=== PATIENT | male | born 1970 | race African-American/Black ===

== ENCOUNTER 2019-05-15 10:22 | Emergency (ER) | payer SELFPAY ==
[2019-05-15 10:30] VITALS: BP 150/107; PULSE 97; RESP 16; TEMP 36.8; O2SAT 98
--- NOTE | 2019-05-15 10:30 | ED.URI ---
HPI - URI/Sore Throat General Chief Complaint: Upper Respiratory Infection Stated Complaint: wheezing/cough Time Seen by Provider: 05/15/19 10:35 Source: patient Mode of arrival: ambulatory Limitations: no limitations History of Present Illness HPI Narrative: Anton Bullock is a 49 yo male with a PMH of asthma and HTN, who came to the [facility] care for complaints of residual cough and mild wheezing after having a bad cold last week. He has no medications for his asthma or his hypertension; discussed importance of taking medication on a regular basis and follow-up Related Data Allergies Allergy/AdvReac Type Severity Reaction Status Date / Time Penicillins Allergy Unknown Verified 12/05/10 08:13 Review of Systems Review of Systems: Narrative: CONSTITUTIONAL: Denies fever, chills, sweats. EYES: Denies visual changes, redness, discharge. ENT: Denies rhinorrhea, has congestion, no sore throat, otalgia. CARDIOVASCULAR: Denies chest pain, palpitations, edema. RESPIRATORY: Denies dyspnea, has wheezing, dry cough GASTROINTESTINAL: Denies abdominal pain, nausea, vomiting, diarrhea. GENITOURINARY: Denies dysuria, hematuria, abnormal discharge SKIN: Denies rash or itching. MUSCULOSKELETAL: Denies acute back pain, joint pain, or myalgia. NEUROLOGIC: Denies numbness, or focal weakness. PSYCHIATRIC: Denies anxiety or depression. [facility] Family History Family History (Updated 05/15/19 @ 10:44 by Deidra Pagan CNP) Other No active medical problems Social History Social History Smoking status: Former smoker Smoking end date: 04/01/04 Alcohol intake: never Comments At time of signature, I agree with nursing past medical, surgical, social and family history. There is no relevant family history pertinent to the presenting complaint. Exam Narrative: Exam Narrative: GENERAL: This is a well-nourished, well-developed patient, mild distress. HEAD: normocephalic, atraumatic. EYES: Sclera clear/white. Vision is grossly intact. EARS: External ears normal, auditory canals clear and without drainage, TMs normal without perforation. Hearing grossly intact. NOSE: External nose normal with no obvious nasal discharge, nares without redness, no rhinorrhea. THROAT: Mucous membranes moist, posterior pharynx erythema NECK: Neck supple, non-tender without lymphadenopathy, CARDIOVASCULAR: Regular rate and rhythm without murmurs, gallops, or rubs. RESPIRATORY: Diminished to auscultation. Breath sounds equal bilaterally. Subtle bilateral wheezes, no rales, or rhonchi. GASTROINTESTINAL: Abdomen soft, non-tender, SKIN: warm, intact with no suspicious lesions or rash, good texture and turgor. NEURO: awake, alert, and oriented to person, place and time. There were no obvious focal neurologic abnormalities. Steady gait EXTREMITIES: Normal range of motion. No edema.No calf tenderness. Negative Homans sign bilaterally. BACK: Nontender without deformity or crepitance. No flank tenderness. Course Course Emergency Course: Discuss control blood pressure and asthma-reviewed Norvasc 5 mg and albuterol inhaler. Also gave 5 days of prednisone p.o., started on Claritin Vital Signs Vital signs: Vital Signs Temperature 98.3 F 05/15/19 10:30 Pulse Rate 97 05/15/19 10:30 Respiratory Rate 16 05/15/19 10:30 Blood Pressure 150/107 H 05/15/19 10:30 Pulse Oximetry 98 05/15/19 10:30 Temperature 98.3 F 05/15/19 10:30 Pulse Rate 97 05/15/19 10:30 Respiratory Rate 16 05/15/19 10:30 Blood Pressure 150/107 H 05/15/19 10:30 Pulse Oximetry 98 05/15/19 10:30 MDM - URI/Sore Throat Differential Diagnosis Differential diagnosis: Likely upper respiratory infection, sinusitis, viral infection and other Discharge Plan Discharge Clinical Impression: Bilateral wheezing Asthma Qualifiers: Asthma severity: mild Asthma persistence: persistent Asthma complication type: uncompli
--- NOTE | 2019-05-15 10:50 | PC.NURSE ---
Pt admitted to [facility] he was treated with Norvasc for BP and has run out of that as wellas asthma meds--needs refill
== END 2019-05-15 10:54 | disposition home or self-care (01) ==
PROVIDERS: Emergency Provider Nurse Practitioner; PCP Family Medicine
DX: J45.30 Mild persistent asthma, uncomplicated (principal); Z87.891 Personal history of nicotine dependence
CPT/HCPCS: 99213; G0463

== ENCOUNTER 2023-04-30 19:12 | Emergency (ER) | payer SELFPAY ==
[2023-04-30 19:18] VITALS: BP 199/116; PULSE 96; RESP 20; TEMP 36.6; O2SAT 100
--- NOTE | 2023-04-30 23:35 | ED.WOUNDLAC ---
HPI - Wound/Laceration General Chief Complaint: Wound/Laceration Stated Complaint: laceration Time Seen by Provider: 04/30/23 23:08 Source: patient Mode of arrival: ambulatory Limitations: no limitations History of Present Illness HPI narrative: This is a 53 year old male that presents to the ER for a laceration to his left 2nd finger sustained just prior to arrival. Reports he accidentally cut it on a pipe. Reports bleeding and pain to the area. He is up to date on tetanus. Denies decreased ROM or numbness. Related Data Allergies Allergy/AdvReac Type Severity Reaction Status Date / Time Penicillins Allergy Unknown Unknown Verified 04/30/23 22:05 shellfish derived Allergy Anaphylaxis Verified 04/30/23 22:05 Review of Systems Review of Systems: CONSTITUTIONAL: Denies fever SKIN: Reports laceration NEUROLOGIC: Denies numbness All systems reviewed & are unremarkable except as noted in HPI and below PMFSH Past Medical History Medical History (Updated 05/01/23 @ 00:21 by Perlita Rockwell PA-C) Essential hypertension Family History Family History (Updated 05/15/19 @ 10:44 by Deidra Pagan, ENGINE BOSS) Other No active medical problems Social History Social History Smoking status: Former smoker Smoking end date: 04/01/04 Alcohol intake: never Exam Narrative: GENERAL: Well-appearing, well-nourished, and in no acute distress. HEAD: Normocephalic, atraumatic. EYES: EOMI. EXTREMITIES: Normal range of motion. No edema. Left 2nd finger distal phalanx with 1.5cm linear laceration into subcutaneous tissue SKIN: Warm, dry, no rash. NEURO: No focal deficits. Alert and oriented x3. PSYCH: Normal mood and affect Course Course Emergency Course: Patient educated on further wound care Vital Signs Vital signs: Vital Signs Temperature 97.9 F 04/30/23 19:18 Pulse Rate 96 04/30/23 19:18 Respiratory Rate 04/30/23 19:18 Blood Pressure 199/116 H 04/30/23 19:18 Pulse Oximetry 100 04/30/23 19:18 Temperature 97.9 F 04/30/23 19:18 Pulse Rate 96 04/30/23 19:18 Respiratory Rate 04/30/23 19:18 Blood Pressure 199/116 H 04/30/23 19:18 Pulse Oximetry 100 04/30/23 19:18 Procedures Laceration Laceration 1: Date: 05/01/23 Time: 00:17 Site: hand Side (If applicable): left Size (cm): 1.5 Description: linear Depth: simple, single layer Local Anesthetic: lidocaine 1% Amount of anesthesia used (mL): 4 Pre-repair: wound explored and irrigated ====== Skin Level ====== Skin layer closed with: nylon Size (cm): 4-0 Number of sutures: 3 Technique: simple, interrupted ====== Subcutaneous Layer ====== ====== Muscle Layer ====== ====== Tendon Layer ====== MDM - Wound/Laceration MDM Narrative Medical decision making narrative: Patient presents to the emergency department for a laceration of the left 2nd finger sustained just prior to arrival. This was irrigated and closed with sutures. Patient is up to date on tetanus vaccination. He was educated on further wound care. He is to follow up with primary provider. He was given warnings to return to the ER Patient's blood pressure elevated in the ED. He reports history of hypertension, but he has not been taking his Amlodipine. He is asymptomatic with this. Instructed on the importance of taking his medication having close follow-up with primary for this. He was given his Amlodipine in the ED and will be given prescription Differential Diagnosis Differential diagnosis: Likely laceration and avulsion of skin Critical Care Time Critical Care Time Critical Care Time: No Discharge Plan Discharge Clinical Impression: Laceration Hypertension Qualifiers: Hypertension type: unspecified Qualified Code(s): I10 - Essential (primary) hypertension Patient
[2023-04-30] MEDS: amLODIPine BESYLATE 5 MG TABLET PO (23:41)
[2023-05-01 00:32] VITALS: BP 169/118; PULSE 84
--- NOTE | 2023-05-01 01:55 | PC.NURSE ---
Dressing applied to left index finger by JOSELIN Bhat.
== END 2023-05-01 00:58 | disposition home or self-care (01) ==
PROVIDERS: Emergency Provider Physician Assistant; PCP Family Medicine
DX: S61.211A Laceration without foreign body of left index finger without damage to nail, initial encounter (principal); I10 Essential (primary) hypertension; W26.8XXA Contact with other sharp object(s), not elsewhere classified, initial encounter
CPT/HCPCS: 12001; 99283; A9270

== ENCOUNTER 2023-08-29 07:22 | Emergency (ER) | payer BC, SELFPAY ==
[2023-08-29] VITALS (18 sets, daily range): BP systolic 152–177; BP diastolic 94–130; PULSE 71–93; RESP 10–20; TEMP 36.9; O2SAT 97–100
--- NOTE | ~2023-08-29 | XR_ITS ---
EXAMINATION: XR chest 2V 08/29/2023 08:02 INDICATION: Shortness of breath. PROCEDURE: 2 view chest COMPARISON: Comparison to multiple prior studies sequentially, with oldest reviewed study dated 12/17. FINDINGS: The lungs are clear. The cardiomediastinal silhouette is within normal limits. There are no pleural effusions. There is no pneumothorax suspected. IMPRESSION: 1: NO ACUTE CARDIOPULMONARY DISEASE. Reviewed, dictated and finalized at location B.
--- NOTE | 2023-08-29 07:30 | ECG_ITS ---
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 Measurements Intervals [place] Rate: 85 P: 65 MA: 162 QRS: 52 QRSD: 86 T: 51 QT: 362 QTc: 431 Interpretive Statements SINUS RHYTHM BASELINE ARTIFACT- I, II, III, V1 NORMAL ECG No previous ECG available for comparison Electronically Signed On 08-29-2023 16:45:08 CDT by Schuyler Sosa D.O.
[2023-08-29 07:48] LABS: Basophils Percent Auto 0.3 % (0.2-1.2); Eosinophils Absolute Auto 0.6 K/mm3 (0-0.3); Eosinophils Percent Auto 4.8 % (0-4.4); Hematocrit 44.9 % (42.0-52.0); Hemoglobin 14.6 g/dL (14.0-18.0); Immature Granulocyte Absolute 0.03 K/mm3 (0.00-0.031); Immature Granulocyte Percent A 0.2 % (0-0.5); Lymphocytes Absolute Auto 2.16 K/mm3 (0.9-3.2); Lymphocytes Percent Auto 17.3 % (18.3-44.2); Mean Corpuscular HGB Conc 32.5 g/dl (32-36); Mean Platelet Volume 9.2 fl (7.4-10.4); Monocytes Absolute Auto 0.6 K/mm3 (0.1-0.6); Monocytes Percent Auto 5.1 % (2.6-8.5); Neutrophils Percent Auto 72.3 % (45.5-73.1); Platelet Count Result 261 k/mm3 (150-375); Red Blood Count 5.22 M/mm3 (4.6-6.20); White Blood Count 12.5 K/mm3 (4.5-10.0)
--- NOTE | 2023-08-29 07:58 | ED.SOB ---
HPI - SOB/Dyspnea General Chief Complaint: Shortness of Breath/Dyspnea Stated Complaint: SOB since yesterday Time Seen by Provider: 08/29/23 07:57 Source: patient Mode of arrival: ambulatory Limitations: no limitations History of Present Illness HPI Narrative: 53-year-old male with past medical history asthma presents with shortness of breath since yesterday approximately 5 pm. Patient has been working around [place] which contains the rain which is a known trigger of his asthma. At baseline his asthma has been well controlled while he was on Trelegy but he admits that he is been out of this medication. He trialed his albuterol inhaler which he typically uses only p.r.n. that he ran out of this medication last night after using it. No prior hospitalizations, intubations, or BiPAP use for his asthma. He denies any fevers or chest pain. He has a history of hypertension for which he takes medication but he ran out of this medication 2 days ago. He can hear wheezes and he notes that he has tightness. He was coughing last night and expectorated mucus this morning as well as rhinorrhea. He used to see Dr. Hopkins but this is no longer his primary care physician and he does not have 1. Related Data Allergies Allergy/AdvReac Type Severity Reaction Status Date / Time Penicillins Allergy Unknown Unknown Verified 08/29/23 07:32 shellfish derived Allergy Anaphylaxis Verified 08/29/23 07:32 [facility] Past Medical History Medical History Asthma Essential hypertension Family History Family History (Updated 05/15/19 @ 10:44 by Deidra Pagan, TRAVEL WRITER) Other No active medical problems Social History Social History Smoking status: Former smoker Smoking end date: 04/01/04 Alcohol intake: never Exam Narrative: GENERAL: Well-appearing, well-nourished, and in no acute distress. HEAD: Normocephalic, atraumatic. EYES: Non injected, non icteric ENT: Nares clear, no rhinorrhea or epistaxis. NECK: Supple. CHEST: Speaking in full sentences. No respiratory distress. Wheezes initially heard without auscultation though poor air movement on chest auscultation anteriorly and posteriorly during exam, although nonlabored. Initially cannot appreciate wheezes but with forced cough I do appreciate wheezes on auscultation. HEART: Regular rate and rhythm. . ABDOMEN: Soft, nondistended. EXTREMITIES: Normal range of motion. No bilateral lower extremity edema. SKIN: Warm, dry, no rash. NEURO: No focal deficits. Alert and oriented x3. PSYCH: Normal mood and affect. Course Vital Signs Vital signs: Vital Signs Temperature 98.5 F 08/29/23 07:25 Pulse Rate 93 08/29/23 07:25 Respiratory Rate 16 08/29/23 07:25 Blood Pressure 177/121 H 08/29/23 07:25 Pulse Oximetry 99 08/29/23 07:25 Oxygen Delivery Room Air 08/29/23 07:25 Temperature 98.5 F 08/29/23 07:25 Pulse Rate 73 08/29/23 09:15 Respiratory Rate 13 08/29/23 09:15 Blood Pressure 159/94 H 08/29/23 09:15 Pulse Oximetry 99 08/29/23 09:15 Oxygen Delivery Room Air 08/29/23 07:25 MDM - SOB/Dyspnea MDM Narrative Medical decision making narrative: The patient presented with cough and wheezing most likely due to asthma exacerbation. It is a moderate exacerbation as there is no altered mental status, abdominal breathing, or evidence of impending respiratory failure, though initially poor air movement. Additionally, the patient has never required intubation/bipap/hospitalization for an exacerbation. In the emergency department he is afebrile with vital signs notable for hypertension; notably, not tachycardic or hypoxic. States he is out of his antihypertensive. The patient received the following therapies Prednisone 40 mg p.o. Duoneb x1 albuterol 2.5 mg x1 Rx provided to refill his Trelegy and amlodipine (after confirming jess
[2023-08-29 08:00] LABS: Alanine Aminotransferase 31 U/L (6-50); Albumin Level 4.6 g/dL (3.5-5.1); Alkaline Phosphatase 76 U/L (38-126); Anion Gap 8 mmol/L (4-12); Aspartate Amino Transferase 44 U/L (17-59); Bilirubin,Total 0.9 mg/dL (0.2-1.3); Blood Urea Nitrogen 11 mg/dL (9-20); Calcium 8.7 mg/dL (8.4-10.2); Carbon Dioxide 28 mmol/L (22-30); Chloride 104 mmol/L (98-107); Estimated CRCL calculation 70 ml/min; Estimated Glomerular Filt Rate > 60; Glucose 109 mg/dL (65-110); Potassium 3.4 mmol/L (3.4-5.0); Sodium 140 mmol/L (137-145)
[2023-08-29] MEDS: predniSONE 20 MG TABLET 40 MG PO (08:09)
[2023-08-29] MEDS: ALBUTEROL SULFATE NEB 2.5 MG/3 ML INH INHALATION (08:15)
[2023-08-29] MEDS: IPRATROPIUM 0.5 MG/ALBUTEROL SULFATE 2.5 MG AMPUL.NEB 3 ML INHALATION (08:16)
[2023-08-29 09:06] LABS: Influenza A QL RT-PCR Negative (Negative); Influenza B QL RT-PCR Negative (Negative); RSV RNA, RT-PCR Negative (Negative); SARS-CoV-2 RNA PCR Negative (Negative)
== END 2023-08-29 09:31 | disposition home or self-care (01) ==
PROVIDERS: Emergency Provider Student in an Organized Health Care Education/Training Program; PCP Family Medicine
DX: J45.901 Unspecified asthma with (acute) exacerbation (principal); D72.829 Elevated white blood cell count, unspecified; I10 Essential (primary) hypertension; Z20.822 Contact with and (suspected) exposure to COVID-19; T48.6X6A Underdosing of antiasthmatics, initial encounter; T46.1X6A Underdosing of calcium-channel blockers, initial encounter; Z91.138 Patient's unintentional underdosing of medication regimen for other reason; Z87.891 Personal history of nicotine dependence
CPT/HCPCS: 36415; 71046; 80053; 85025; 87637; 93005; 94640; 99284; J7512

== ENCOUNTER 2025-03-17 08:16 | Emergency (ER) | payer BC, SELFPAY ==
[2025-03-17 08:31] VITALS: BP 176/131; PULSE 96; RESP 16; TEMP 36.3; O2SAT 99
--- NOTE | 2025-03-17 09:33 | ED.GENADULT ---
HPI - General Adult General Chief complaint: Back Pain/Injury Stated complaint: Back Pain Time Seen by Provider: 03/17/25 08:18 Source: patient Mode of arrival: ambulatory Limitations: no limitations History of Present Illness HPI narrative: Pt is a 54 y/o male presenting with c/o L. lower back pain. Pain began 4 days ago while bending over to put his socks on. States pain radiates into his L. buttock, down posterior aspect of L. thigh. Aggravating factors include all movement. Reports hx of similar. Denies bowel/bladder incontinence. Denies urinary retention, dysuria, hematuria. Of note, also reports noncompliance with BP medication as he states he needs to make an appointment with his PCP. Denies any additional complaints. Related Data Allergies Allergy/AdvReac Type Severity Reaction Status Date / Time Penicillins Allergy Unknown Unknown Verified 03/17/25 08:29 shellfish derived Allergy Anaphylaxis Verified 03/17/25 08:29 Review of Systems Review of Systems: CONSTITUTIONAL: Denies body aches, fever, chills, or sweats. EYES: Denies visual changes, redness, or discharge. ENT: Denies rhinorrhea, congestion, sore throat, or otalgia. CARDIOVASCULAR: Denies chest pain, palpitations, or edema. RESPIRATORY: Denies cough or dyspnea. GASTROINTESTINAL: Denies abdominal pain, nausea, vomiting, or diarrhea. GENITOURINARY: Denies dysuria or hematuria. SKIN: Denies rash, itching, or wounds. MUSCULOSKELETAL: Reports left lower back pain, denies joint pain, or myalgia. NEUROLOGIC: Denies headache, numbness, tingling, or weakness. PSYCH: Denies depression or anxiety. All systems reviewed & are unremarkable except as noted in HPI and below [facility] Past Medical History Medical History (Updated 03/17/25 @ 09:50 by Tim Bolton APRN) Essential hypertension Asthma Family History Family History Other No active medical problems Social History Social History Smoking status: Former smoker Smoking end date: 04/01/04 Alcohol intake: never Substance use: never Living arrangements: with family Occupation/Education: occupation Gender identity (if verbalized by the patient): Male Sexual Orientation (if Verbalized by the Patient): Straight or Heterosexual Exam Narrative: GENERAL: Well-appearing, well-nourished, and in no acute distress. HEAD: Normocephalic, atraumatic. EYES: EOMI. No redness or drainage. Conjunctivae normal. ENT: Mucous membranes pink and moist. Nares clear. No rhinorrhea. TMs normal bilaterally. Throat normal. Uvula midline. NECK: Normal AROM. Supple. No lymphadenopathy. CHEST: No respiratory distress. Clear to auscultation. HEART: Regular rate and rhythm. No murmur appreciated. Normal peripheral pulses. ABDOMEN: Soft, nontender, nondistended, normal active bowel sounds. MUSCULOSKELETAL: No bony tenderness. No TTP over the SI joint. Reports pain with active flexion and extension of spine at 30 degrees. Reports pain with lateral rotation. +SLR (left) at 30 degrees. Mild TTP over the L. paraspinal lumbar region. No evidence of saddle anesthesia. NO spinal process tenderness. No rash. EXTREMITIES: Normal range of motion. No edema. SKIN: Warm, dry, no rash. Capillary refill normal. Normal skin turgor. NEURO: No focal deficits. Alert and oriented x3. Gait steady. PSYCH: Normal affect. No signs of depression or anxiety. Course Course Level of Care: Express Care Visit Vital Signs Vital signs: Vital Signs Temperature 97.4 F L 03/17/25 08:31 Pulse Rate 96 03/17/25 08:31 Respiratory Rate 16 03/17/25 08:31 Blood Pressure 176/131 H 03/17/25 08:31 Pulse Oximetry 99 03/17/25 08:31 Temperature 97.4 F L 03/17/25 08:31 Pulse Rate 96 03/17/25 08:31 Respiratory Rate 16 03/17/25 08:31 Blood Pressure 176/131 H 03/17/25 08:31 Pulse Oximetry 99 03/17/25 08:31 [facility] MDM Narrative Medical decision making narrative: Reports improvement in pain after solumedrol--rating 3/10, was 5/10. Discussed elevated blood pressure readings with patient and advised daily BP monitoring and f/u with PCP if persisting. Differential Diagnosis Differential Diagnosis: sciatica, lumbar strain, compression fracture, UTI, pyelonephritis, nephrolithiasis. Discharge Plan Discharge Clinical Impression: Hypertension, Noncompliance with medication regimen Strain of lumbar region Qualifiers: Encounter type: initial encounter Qualified Code(s): S39.012A - Strain of muscle, fascia and tendon of lower back, initial encounter Patient Disposition: Home Condition: Stable Instructions: Acute Low Back Pain (ED), Lower Back Exercises (ED) Additional Instructions: Go straight to ER should your symptoms become worse or should any new symptoms develop Patient Language: Romanian Prescriptions: New methocarbamol 500 mg tablet 500 mg PO TID Qty: 10 0RF ibuprofen 600 mg tablet 600 mg PO TID PRN (Reason: pain) Qty: 30 0RF No Action amlodipine 5 mg tablet 5 mg PO DAILY Qty: 90 1RF albuterol sulfate 90 mcg/actuation HFA aerosol inhaler 1 inh inhalation QID PRN (Reason: shortness of breath or wheezing) Qty: 6.7 2RF fluticasone propion-salmeterol [Advair Diskus] 250-50 mcg/dose blister with device 1 inh inhalation BID Qty: 60 5RF Follow-up/Referrals: Ricardo Hoskins MD [Primary Care Provider, Family Practice] - 03/18/25 Stand Alone Forms: Work/School Release IP Time of Disposition: 09:43
[2025-03-17 09:48] VITALS: BP 160/98
== END 2025-03-17 09:48 | disposition home or self-care (01) ==
PROVIDERS: Emergency Provider Registered Nurse; PCP Family Medicine
DX: I10 Essential (primary) hypertension (principal); Z91.148 Patient's other noncompliance with medication regimen for other reason; S39.012A Strain of muscle, fascia and tendon of lower back, initial encounter; X50.0XXA Overexertion from strenuous movement or load, initial encounter; J45.909 Unspecified asthma, uncomplicated; Z87.891 Personal history of nicotine dependence
CPT/HCPCS: 96372; 99213; G0463; J2919

== ENCOUNTER 2025-03-18 10:21 | Emergency (ER) | payer BC, SELFPAY ==
[2025-03-18 10:28] VITALS: BP 188/119; PULSE 95; RESP 18; TEMP 36.3; O2SAT 98
--- OUTSIDE RECORDS SUMMARY | 2025-03-18 10:41 | XMS_ITS ---
Author Organization Unknown ENCOUNTERS Encounter Performer Location Date Diagnosis Diagnosis Status Pre Admit [facility] [address] [place] [address] [id number] Emergency [facility] [address] [place] [address] [id number] [place] Emergency [facility] [address] [place] [address] [phone] [place] Pre Admit [facility] [address] [place] [address] [phone] *Note: Encounters from your own facility or health system may be excluded. Allergies, Adverse Reactions, Alerts Allergen Type Severity Identification Date Penicillins drug allergy 3 [id number] shellfish derived food allergy 3 [id number] Medications Name Date Quantity Days Supplied GPI Number
--- NOTE | 2025-03-18 18:13 | ED_ITS ---
HPI - Recheck/Abnormal Lab/Rx General Chief Complaint: Recheck/Abnormal Lab/Rx Stated Complaint: high bp Time Seen by Provider: 03/18/25 11:07 History of Present Illness HPI narrative: Patient has no symptoms, went to see his primary care doctor for refills of amlodipine since he has been out of it for a few weeks, their computer system was down so his PCP sent him to our emergency room. Related Data Allergies Allergy/AdvReac Type Severity Reaction Status Date / Time Penicillins Allergy Unknown Unknown Verified 03/17/25 08:29 shellfish derived Allergy Anaphylaxis Verified 03/17/25 08:29 Review of Systems Review of Systems: All systems reviewed & are unremarkable except as noted in HPI and below PMFSH Past Medical History Medical History (Updated 03/18/25 @ 11:11 by Elvia Flowers MD) Essential hypertension Asthma Family History Family History Other No active medical problems Social History Social History Smoking status: Former smoker Smoking end date: 04/01/04 Alcohol intake: never Substance use: never Living arrangements: with family Occupation/Education: occupation Gender identity (if verbalized by the patient): Male Sexual Orientation (if Verbalized by the Patient): Straight or Heterosexual Exam Narrative: EXAMINATION OF ORGAN SYSTEMS/BODY AREAS: Constitutional: Vital signs per nursing GENERAL:No acute distress, non-toxic appearing. HEAD: Normal with no signs of head trauma. EYES: EOMI, conjunctiva normal ENT: Hearing grossly intact LUNGS: Nonlabored breathing. HEART: Regular rate and rhythm ABD: Soft, nontender to palpation EXT: Normal range of motion SKIN: No rashes or lesions. NEURO: Alert. No gross focal sensory or strength deficits. No facial droop, he has clear speech, steady gait PSYCH: Normal affect Course Vital Signs Vital signs: Vital Signs Temperature 97.3 F L 03/18/25 10:28 Pulse Rate 95 03/18/25 10:28 Respiratory Rate 18 03/18/25 10:28 Blood Pressure 188/119 H 03/18/25 10:28 Pulse Oximetry 98 03/18/25 10:28 Temperature 97.3 F L 03/18/25 10:28 Pulse Rate 95 03/18/25 10:28 Respiratory Rate 18 03/18/25 10:28 Blood Pressure 188/119 H 03/18/25 10:28 Pulse Oximetry 98 03/18/25 10:28 MDM MDM Narrative Medical decision making narrative: Patient with asymptomatic hypertension. No signs or symptoms of end organ dysfunction; no chest pain or shortness of breath, neurological deficits, severe headaches, visual disturbance, oliguria, or symptoms of dissection/AAA). He was already on amlodipine and have been well controlled on it just ran out, so I will refill his amlodipine and he will be seeing his doctor in the next few days. Strict return precautions provided Differential Diagnosis Differential Diagnosis: No hypertensive emergency or see without any symptoms Discharge Plan Discharge Clinical Impression: Hypertension, Encounter for medication refill Patient Disposition: Home Condition: Stable Instructions: Chronic Hypertension (ED), Normal Exam (ED) Patient Language: Lithuanian Prescriptions: New amlodipine 5 mg tablet 5 mg PO DAILY Qty: 30 2RF No Action methocarbamol 500 mg tablet 500 mg PO TID Qty: 10 0RF ibuprofen 600 mg tablet 600 mg PO TID PRN (Reason: pain) Qty: 30 0RF amlodipine 5 mg tablet 5 mg PO DAILY Qty: 90 1RF albuterol sulfate 90 mcg/actuation HFA aerosol inhaler 1 inh inhalation QID PRN (Reason: shortness of breath or wheezing) Qty: 6.7 2RF fluticasone propion-salmeterol [Advair Diskus] 250-50 mcg/dose blister with device 1 inh inhalation BID Qty: 60 5RF Follow-up/Referrals: Ricardo Hoskins MD [Primary Care Provider, Family Practice] - 2 Days
== END 2025-03-18 11:32 | disposition home or self-care (01) ==
PROVIDERS: Emergency Provider Emergency Medicine; PCP Family Medicine
DX: I10 Essential (primary) hypertension (principal); Z76.0 Encounter for issue of repeat prescription; J45.909 Unspecified asthma, uncomplicated; Z87.891 Personal history of nicotine dependence
CPT/HCPCS: 99281; A9270